=== PATIENT | female | born 1990 | race Caucasian/White ===

== ENCOUNTER 2023-12-15 17:17 | Outpatient (REF) | payer SELFPAY ==
[2023-12-15 18:05] LABS: TSH (W/Ref FT4) 6.75 uIU/mL (0.36-3.74)
[2023-12-15 18:24] LABS: FREE T4 0.72 ng/dL (0.76-1.46)
== END 2023-12-15 17:18 | disposition home or self-care (01) ==
LOC: NCHCN 17:17
PROVIDERS: Visit Provider Nurse Practitioner Family
DX: Z86.39 Personal history of other endocrine, nutritional and metabolic disease (principal)
CPT/HCPCS: 84439; 84443

== ENCOUNTER 2024-02-09 09:30 | Outpatient (REF) | payer OTHER, SELFPAY ==
[2024-02-09 15:06] LABS: TSH (W/Ref FT4) 6.63 uIU/mL (0.36-3.74)
[2024-02-09 15:48] LABS: FREE T4 0.85 ng/dL (0.76-1.46)
== END 2024-02-09 09:31 | disposition home or self-care (01) ==
LOC: NCHCN 09:30
PROVIDERS: Visit Provider Nurse Practitioner Family
DX: E03.9 Hypothyroidism, unspecified (principal)
CPT/HCPCS: 84439; 84443

== ENCOUNTER 2024-03-22 14:35 | Outpatient (REF) | payer OTHER, SELFPAY ==
[2024-03-22 16:31] LABS: TSH (W/Ref FT4) 3.91 uIU/mL (0.36-3.74)
[2024-03-22 16:54] LABS: FREE T4 0.99 ng/dL (0.76-1.46)
== END 2024-03-22 14:36 | disposition home or self-care (01) ==
LOC: NCHCN 14:35
PROVIDERS: Visit Provider Nurse Practitioner Family
DX: E03.9 Hypothyroidism, unspecified (principal)
CPT/HCPCS: 84439; 84443

== ENCOUNTER 2024-05-30 22:25 | Outpatient (REF) | payer OTHER, SELFPAY ==
[2024-05-30 18:20] LABS: TSH 1.93 uIU/Ml (0.36-3.74)
== END 2024-05-30 22:26 | disposition home or self-care (01) ==
LOC: NCHCN 22:25
PROVIDERS: PCP Nurse Practitioner Family; Visit Provider Nurse Practitioner Family
DX: E03.9 Hypothyroidism, unspecified (principal)
CPT/HCPCS: 84443

== ENCOUNTER 2025-01-04 08:50 | Outpatient (REF) | payer OTHER, SELFPAY ==
[2025-01-04 14:56] LABS: Calculated LDL 98 mg/dL (<100); Cholesterol 178 mg/dL (<200); HDL Cholesterol 67 mg/dL (>or=50); TSH (W/Ref FT4) 5.92 uIU/mL (0.36-3.74); Triglyceride 66 mg/dL (<150)
[2025-01-05 18:16] LABS: T4, Free 1.5 ng/dL (0.8-2.2)
== END 2025-01-04 08:51 | disposition home or self-care (01) ==
LOC: NCHCN 08:50
PROVIDERS: PCP Nurse Practitioner Family; Visit Provider Nurse Practitioner Family
DX: E03.9 Hypothyroidism, unspecified (principal); Z00.00 Encounter for general adult medical examination without abnormal findings
CPT/HCPCS: 80061; 84439; 84443

== ENCOUNTER 2025-02-10 09:41 | Outpatient (REF) | payer OTHER, SELFPAY | END 2025-02-10 09:42 | disposition home or self-care (01) | LOC: NCHCN 09:41 | PROVIDERS: PCP Nurse Practitioner Family; Visit Provider Nurse Practitioner Family | DX: E03.9 Hypothyroidism, unspecified (principal) | CPT/HCPCS: 84443 ==

== ENCOUNTER 2025-04-18 17:30 | Outpatient (REF) | payer OTHER, SELFPAY ==
[2025-04-18 21:15] LABS: HCT 41.4 % (36.0-46.0); HGB 13.7 g/dL (11.2-15.7); MCH 29.7 pg (27.0-33.0); MCHC 33.1 % (32.0-36.0); MCV 90 fL (80-95); MPV 10.9 fL (8.0-11.0); Platelet Count 300 10^3/uL (130-400); RBC 4.62 10^6/uL (3.93-5.22); RDW 13.4 % (11.7-14.6); RDW-SD 44.1 fL; WBC 9.89 10^3/uL (4.4-10.8)
[2025-04-18 21:20] LABS: ESR 6 mm/hr (0-20)
[2025-04-18 21:45] LABS: ALT 22 U/L (14-59); AST 18 U/L (15-37); Albumin 4.1 g/dL (3.4-5.0); Alkaline Phosphatase 55 U/L (46-116); Anion Gap 6.3 mmol/L (3-11); BUN 14 mg/dL (7-18); Bilirubin, Total 0.2 mg/dL (0.2-1.0); CO2 29.7 mmol/L (21.0-32.0); Calcium 9.0 mg/dL (8.5-10.1); Chloride 104 mmol/L (98-107); Estimated GFR 98.48 (mL/min/1.73m2); Glucose 87 mg/dL (74-106); Potassium 4.0 mmol/L (3.5-5.1); Sodium 140 mmol/L (136-145); TSH 3.95 uIU/mL (0.36-3.74); Total Protein 7.7 g/dL (6.4-8.2)
[2025-04-19 17:45] LABS: CRP, High Sensitivity 6.04 mg/L (See Note)
[2025-04-20 10:45] LABS: Lyme Ab w Rflx to Lyme Confirm Negative (Negative)
[2025-04-22 15:10] LABS: B. miyamotoi PCR Negative (Negative); Babesia divergens/MO-1 Negative (Negative); Ehrlichia muris eauclairensis Negative (Negative)
== END 2025-04-18 17:31 | disposition home or self-care (01) ==
LOC: NCHCN 17:30
PROVIDERS: PCP Nurse Practitioner Family; Visit Provider Nurse Practitioner Family
DX: E03.9 Hypothyroidism, unspecified (principal); M79.18 Myalgia, other site
CPT/HCPCS: 80053; 85027; 85652; 86141; 87798; 84443; 86618

== ENCOUNTER 2025-06-29 14:57 | Outpatient (REF) | payer OTHER, SELFPAY ==
[2025-06-29 17:33] LABS: TSH 4.23 uIU/mL (0.36-3.74)
== END 2025-06-29 14:58 | disposition home or self-care (01) ==
LOC: NCHCN 14:57
PROVIDERS: PCP Nurse Practitioner Family; Visit Provider Nurse Practitioner Family
DX: E03.9 Hypothyroidism, unspecified (principal)
CPT/HCPCS: 84443